=== PATIENT | female | born 1955 ===

== ENCOUNTER 2017-04-12 07:00 | Day surgery (SDC) | payer OTHER ==
[~2017-04-12] VITALS: Ht 160 cm; Wt 74.8 kg
[~2017-04-12 07:00] MED LIST: COZAAR50 MG PO; CRESTOR5 MG PO; OSTERA TABLET1 EACH PO; PROLIA60 MG/1 ML PO
[2017-04-12] MEDS ORDERED: PERCOCET 5-3251 EACH PO (09:02)
== END 2017-04-12 13:00 | disposition home or self-care (01) ==
LOC: CIR.AMB 07:00 → SURH 07:00 → EDSTATUS 07:00 → SURH 07:30 → O/R 12:10 → CIR.AMB 13:00
DX: D35.1 Benign neoplasm of parathyroid gland (principal)